=== PATIENT | male | born 1960 | race Caucasian/White ===

== ENCOUNTER → 2017-01-17 | Outpatient (CLI) | payer BC, OTHER ==
[~2017-01-17] VITALS: Ht 180.3 cm; Wt 87.5 kg
[~2017-01-17] MED LIST: ALIGN4 MG PO; ASA81BEC PO; ASPIR 8181 MG PO; BACLOFEN 10MG T10 MG PO; HYDROCODONE-AP1 EAC6 PO; IBUPROFEN 800800 M1 PO; NABUMETONE 750750 M1 PO
--- NOTE | ~2017-01-17 | HPC ---
[facility] [address] [place] [address] PAIN MANAGEMENT CONSULTATION Name: FABRICIO LENNON Room #: REG [facility] [id number] Admission: 01/17/17 Attend Phys: Eri Charles MD Discharge: Date of : 64 Report #: [id number] THIS REPORT FOR: //name// CC: Franki López MD FAM unknown Eri Cheung MD DATE OF SERVICE: 01/17/2017 PRIMARY CARE PHYSICIAN: Jordan Cheung M.D. FOLLOWUP COMPLAINT: Back spasms and back pain. FOLLOWUP HISTORY: The patient is a 56-year-old gentleman who has been seen in the pain clinic in the past by Dr. Lukasz Jamison. He is a practicing orthopedics surgeon. He finds that now that spring has arrived, he has been playing golf and engaging in other activities. He notes that his pain has increased as a result of these activities. Also after long days of work, you can have more pain and discomfort. He finds that at times, he is unable to sleep because of the intensity of this painful condition. He has been using hydrocodone very judiciously. When his pain becomes quite problematic, he takes a hydrocodone tablet. These are 5 mg. They have lasted him about a year. He often rotates his nonsteroidal anti-inflammatory medication. PHYSICAL EXAMINATION: Blood pressure 123/75, pulse 82, respiratory rate 16 and room air saturation 98%. Height 5 feet 11 inches, weight 87 kilograms. BMI is 26.9. He has not fallen. CURRENT MEDICATIONS: Aspirin 81 mg daily, Align 4 mg daily, ibuprofen 800 mg q. 8 hours p.r.n. and hydrocodone 5/325 one tablet at bedtime when pain is severe enough to keep him awake. IMPRESSION: MRI in the past which showed bilateral facet arthropathy at L4-L5 and possibly L5-S1. RECOMMENDATIONS: We discussed the treatment options with the patient. At this juncture, he feels that the hydrocodone has been quite helpful. He has used this medication judiciously, receiving it in 2013 and has returned today for refill on his prescription. We will provide the patient with baclofen 10 mg 1 p.o. t.i.d. and he will take it on the weekend and note its efficacy. He will call us if he has any problems with his medications. [address] [address] PAIN MANAGEMENT CONSULTATION Name: CITLALLIFABRICIO ISAI Room #: REG NIELSMae Hagan#: [id number] Admission: 01/17/17 Attend Phys: Eri Charles MD Discharge: Date of : 64 Report #: [id number] We would like to thank you for letting us participate in his care. We hope he continues to improve. <ELECTRONICALLY SIGNED> By: Eri Charles MD 01/19/17 [id number] Eri Charles MD /cely
[2017-01-17 11:53] VITALS: BP 123/75
== END ==
LOC: PAIN 09:49
DX: M12.88 Other specific arthropathies, not elsewhere classified, other specified site (principal); Z79.82 Long term (current) use of aspirin